=== PATIENT | female | born 1950 | race Caucasian/White ===

== ENCOUNTER → 2018-10-11 | Outpatient (CLI) | payer MEDICARE, OTHER ==
--- NOTE | 2018-10-11 09:45 | Diagnostic Imaging Report ---
EXAM: Cervical spine radiographs-6 views INDICATION: Neck pain. COMPARISON: None FINDINGS: BONES: Mild straightening of the normal cervical lordosis. C1-C2 alignment is maintained. No acute displaced fractures. Vertebral body heights are preserved. DISCS: Moderate degenerative disc changes at C5-C6 and C6-C7. JOINTS: Moderate facet degenerative changes at C5-C6 and C6-C7 with associated mild bony neural foraminal stenosis. SOFT TISSUES: Unremarkable IMPRESSION: No acute radiographic abnormality. Moderate degenerative disc and facet degenerative changes at C5-C6 and C6-C7 with associated mild bony neural foraminal stenosis. Signed by: Dr. Karen Xiao MD on 10/11/2018 9:42 AM
== END ==
LOC: RAD 09:05
PROVIDERS: ATTEND Internal Medicine
DX: M54.2 Cervicalgia (principal)
CPT/HCPCS: 72050

== ENCOUNTER → 2020-05-13 | Day surgery (SDC) | payer MEDICARE, OTHER ==
[~2020-05-13] MED LIST: ASPIRIN81 MG PO; ATORVASTATIN CA10 MG PO; BUSPIRONE HCL5 MG PO; CARVEDILOL12.5 MG PO; CYMBALTA30 MG PO; ESTRADIOL1 MG PO; FENTANYL CITRATE/PF 100MCG/2 ML INJ ONE; GABAPENTIN300 MG PO; IMITREX25 MG PO; KRILL OIL 3501 EACH PO; LIOTHYRONINE SO5 MCG PO; LOSARTAN-HCTZ1 EAC1 PO; MIDAZOLAM HCL 2 MG/2 ML VIAL ONE; MOBIC7.5 MG PO; NORVASC10 MG PO; OR PHACO EYE KIT ONE; PREOP PHACO EYE KIT ONE; STOOL SOFTENER250 MG PO; SYNTHROID125 MCG PO; TRAMADOL HCL100 MG PO; VITAMIN D3 PO; VITAMIN D3250 MCG; [UNRECOGNIZED DRUG - OTHER] PO
[2020-05-13 09:34] VITALS: BP 134/71
== END | disposition home or self-care (01) ==
LOC: OR 07:50
PROVIDERS: ATTEND Ophthalmology
DX: H25.11 Age-related nuclear cataract, right eye (principal); G47.33 Obstructive sleep apnea (adult) (pediatric); I10 Essential (primary) hypertension; K58.9 Irritable bowel syndrome, unspecified; H91.90 Unspecified hearing loss, unspecified ear; M79.7 Fibromyalgia; F32.9 Major depressive disorder, single episode, unspecified; F41.9 Anxiety disorder, unspecified; F98.8 Other specified behavioral and emotional disorders with onset usually occurring in childhood and adolescence; Z88.6 Allergy status to analgesic agent; Z01.812 Encounter for preprocedural laboratory examination; Z11.59 Encounter for screening for other viral diseases; Z79.82 Long term (current) use of aspirin
CPT/HCPCS: 66984; U0002; J2250; J3010; V2788

== ENCOUNTER → 2020-07-08 | Day surgery (SDC) | payer MEDICARE, OTHER ==
[2020-07-08 11:45] VITALS: BP 128/74
== END | disposition home or self-care (01) ==
LOC: OR 08:30
PROVIDERS: ATTEND Ophthalmology
DX: H25.12 Age-related nuclear cataract, left eye (principal); I10 Essential (primary) hypertension; Z88.5 Allergy status to narcotic agent; G47.33 Obstructive sleep apnea (adult) (pediatric); E78.5 Hyperlipidemia, unspecified; K57.30 Diverticulosis of large intestine without perforation or abscess without bleeding; Z01.812 Encounter for preprocedural laboratory examination; Z20.828 Contact with and (suspected) exposure to other viral communicable diseases
CPT/HCPCS: 66984; U0002; V2788; J2250; J3010